=== PATIENT | female | born 1930 | race Caucasian/White ===

== ENCOUNTER → 2020-02-22 | Emergency (ER) | payer MEDICARE ==
[~2020-02-22] VITALS: Ht 142.2 cm; Wt 45.4 kg
[~2020-02-22] MED LIST: AMLO5TAB4 PO; ASPI325T8 PO; ASPIRIN CHEWABLE 81 MG TABLET. PO ONE; CRESTOR10 MG PO; HYDR-2934 PO; IV NORMAL SALINE 1000ML BAG 1,000 ML IV SCH; MELO7.5T5 PO; METO25TA2 PO
--- NOTE | 2020-02-22 18:26 | PHYS DOC ---
General Adult EDM: Chief Complaint: CHEST PAIN HPI: HPI: Patient is a 89 year old female who presents with complaint of left-sided chest discomfort that started about 2 hours ago. She describes pain is more of a sharp pain but states that she has no exacerbating or relieving symptoms. She rates pain at about a 4 out of 10. She denies any nausea, vomiting or diaphoresis. She denies any cough or shortness of breath. She also denies any fever. [] Review of Systems: Review of Systems: Constitutional: Denies fever or chills. [] Respiratory: Denies cough or shortness of breath. [] Cardiovascular: Complains of chest pain. [] GI: Denies abdominal pain, nausea, vomiting, bloody stools or diarrhea. [] Neurologic: Denies headache, focal weakness or sensory changes. [] A full 10 point review of systems has been reviewed and is otherwise negative Heart Score: Risk Factors: Risk Factors: DM, Current or recent (<one month) smoker, HTN, HLP, family history of CAD, obesity. Risk Scores: Score 0 - 3: 2.5% MACE over next 6 weeks - Discharge Home Score 4 - 6: 20.3% MACE over next 6 weeks - Admit for Clinical Observation Score 7 - 10: 72.7% MACE over next 6 weeks - Early Invasive Strategies Current Medications: Current Medications Medications (Trade) Dose Ordered Sig/Leela Start Time Stop Time Status Last Admin Dose Admin Aspirin (Aspirin Chewable) 324 mg 1X ONCE 02/22/20 18:30 02/22/20 18:31 Sodium Chloride 1,000 ml @ 1,000 mls/hr Q1H 02/22/20 18:18 02/22/20 19:17 Allergies: Allergies: Allergies Coded Allergies Type Severity Reaction Last Updated Verified bee venom (honey bee) Allergy Mild 09/08/13 Yes Physical Exam: PE: Constitutional: Well developed, well nourished, no acute distress, non-toxic appearance. [] HENT: Normocephalic, atraumatic, bilateral external ears normal, oropharynx moist, no oral exudates, nose normal. [] Eyes: PERRLA, EOMI, conjunctiva normal, no discharge. [] Neck: Normal range of motion, no tenderness, supple, no stridor. [] Cardiovascular: Regular rate and rhythm [] Lungs & Thorax: Bilateral breath sounds clear to auscultation [] Abdomen: Bowel sounds normal, soft, no tenderness. [] Skin: Warm, dry, no erythema, no rash. [] Extremities: No tenderness, no cyanosis, no clubbing, ROM intact, no edema. [] Neurologic: Alert and oriented X 3, no focal deficits noted. [] EKG: EKG: EKG demonstrates normal sinus rhythm with rate of 65. [] Radiology/Procedures: Radiology/Procedures: [] Course & Med Decision Making: Course & Med Decision Making Pertinent Labs and Imaging studies reviewed. (See chart for details) Patient moved to room upon arrival was evaluated by ER medical staff after which cardiac work-up was initiated on patient. Initial work-up is returned unremarkable with normal troponin. I did discuss admission of the patient with patient and her son and patient is refusing admission. Patient did agree to a 2-hour delta troponin. That was performed and has returned negative. Patient will be discharged home with instructions to follow-up with her primary care provider. Ldon Disclaimer: Dragcarrie Disclaimer: This electronic medical record was generated, in whole or in part, using a voice recognition dictation system. Departure Departure Impression: Primary Impression: Chest pain Qualified Codes: R07.9 - Chest pain, unspecified Disposition: 01 HOME, SELF-CARE Condition: STABLE Referrals: Rodger GANN MD (PCP) Patient Instructions: Chest Pain (Nonspecific) Additional Instructions: Call to schedule follow up appointment with your primary provider in the next few days. Return to the ER if your symptoms of chest pain return. Justicifation of Admission Dx: Justifications for Admission: Justification of Admission Dx: Comment: (Not applicable) BEAU VALLE Jr. DO Feb 22, 2020 18:26
--- NOTE | 2020-02-22 18:44 | RAD ---
PORTABLE CHEST 1V 02/22/2020 6:18 PM INDICATION: Chest pain COMPARISON: None available TECHNIQUE: Portable frontal view of the chest is provided. FINDINGS: The cardiomediastinal silhouette is within normal limits. Lungs are clear. There are no significant pleural effusions. There is no pulmonary vascular congestion. No pneumothorax. No suspicious osseous abnormality. IMPRESSION: There is no acute cardiopulmonary process. Electronically signed by: Greta Noriega MD (02/22/2020 6:41 PM) JOANA
[2020-02-22 18:48] LABS: BASO # 0.1 x10^3/uL (0.0-0.2); BASO % 1 % (0-3); EOS # 0.1 x10^3/uL (0.0-0.7); EOS % 2 % (0-3); HEMATOCRIT 38.6 % (36.0-47.0); HEMOGLOBIN 13.8 g/dL (12.0-15.5); LYMPH # 1.4 x10^3/uL (1.0-4.8); LYMPH % 28 % (24-48); MEAN CORPUSCULAR HEMOGLOBIN 31 pg (25-35); MEAN CORPUSCULAR HGB CONC 36 g/dL (31-37); MEAN CORPUSCULAR VOLUME 87 fL (79-100); MONO # 0.4 x10^3/uL (0.0-1.1); MONO % 8 % (0-9); NEUT # 3.1 x10^3/uL (1.8-7.7); NEUT % 61 % (31-73); PLATELET COUNT 210 x10^3/uL (140-400); RED BLOOD COUNT 4.42 x10^6/uL (3.50-5.40); WHITE BLOOD COUNT 5.1 x10^3/uL (4.0-11.0)
[2020-02-22 18:50] LABS: CALCIUM 9.7 mg/dL (8.5-10.1); CREATININE 0.8 mg/dL (0.6-1.0); GFR 67.8; POTASSIUM 3.7 mmol/L (3.5-5.1)
[2020-02-22 18:56] LABS: ALBUMIN 3.8 g/dL (3.4-5.0); MAGNESIUM 2.3 mg/dL (1.8-2.4); TOTAL BILIRUBIN 0.3 mg/dL (0.2-1.0); TOTAL PROTEIN 7.5 g/dL (6.4-8.2)
[2020-02-22 19:20] LABS: BILIRUBIN,URINE NEGATIVE (NEG); CLARITY,URINE CLEAR; COLOR,URINE YELLOW; NITRITE,URINE NEGATIVE (NEG); PROTEIN,URINE NEGATIVE (NEG-TRACE); UROBILINOGEN,URINE 0.2 mg/dL (0.2 mg/dL)
[2020-02-22 19:24] LABS: SQUAMOUS EPITHELIAL CELL,UR FEW /LPF
[2020-02-22 19:25] LABS: BACTERIA,URINE 0 /HPF (0-FEW); RBC,URINE 0 /HPF (0-2)
[2020-02-22 21:30] VITALS: BP 155/91
--- NOTE | 2020-02-23 04:25 | EKG ---
[facility] [address] [place] [address] Test Date: 2020-02-22 Test Time: 18:00:48 Pat Name: BENOIT VASQUES Department: Room: Gender: F [employer] Maintenance: : [id number] Requested By: BEAU VALLE Order Number: [id number] Reading MD: Measurements Intervals [place] Rate: 65 P: 90 AR: 204 QRS: -39 QRSD: 86 T: 32 QT: 428 QTc: 446 Interpretive Statements SINUS RHYTHM ABNORMAL LEFT AXIS DEVIATION CONSIDER LEFT VENTRICULAR HYPERTROPHY QRS(T) CONTOUR ABNORMALITY CONSIDER ANTEROSEPTAL MYOCARDIAL DAMAGE ABNORMAL ECG RI6.02 No previous ECG available for comparison
== END ==
LOC: ER 17:55
DX: R07.89 Other chest pain (principal); Z91.030 Bee allergy status; Z79.899 Other long term (current) drug therapy
CPT/HCPCS: 36415; 71045; 80053; 81001; 83735; 83880; 84484; 85025; 87086; 93005; 99285; J7030